=== PATIENT | female | born 1960 | race Caucasian/White ===

== ENCOUNTER 2016-08-15 15:04 | Outpatient (CLI) | payer BC ==
--- NOTE | 2016-08-15 21:29 | RAD ---
CHEST TWO VIEWS: Date: 08-15-16 FINDINGS: The heart is normal in size and the lungs are clear. No infiltrate or effusion was seen. There is no sign of pneumonia. The bony structures appear intact. IMPRESSION: No acute findings. POS: HOME
== END 2016-08-15 15:05 | disposition home or self-care (01) ==
LOC: BURRAD 15:04
PROVIDERS: ATTEND Family Medicine
DX: J40 Bronchitis, not specified as acute or chronic (principal)
CPT/HCPCS: 71020

== ENCOUNTER 2017-01-19 13:33 | Outpatient (CLI) | payer BC ==
--- NOTE | 2017-01-19 18:01 | RAD ---
LUMBAR SPINE 3 VIEWS: Date: 01/19/17 FINDINGS: No fracture is seen. There may be some slight disc space narrowing at L5-S1. Minimal anterolisthesis of L4 on L5 is present, but I could not confirm any pars defect. Arthritic changes are extremely mi nimal. The SI joints are symmetrical. There may be a calculus in the lower pole of the left kidney. IMPRESSION: 1. No acute lumbar findings. 2. Minimal L5-S1 disc space narrowing. If symptoms are suggestive of a radiculopathy, a MRI could b e helpful. 3. Mild anterolisthesis of L4 on L5. 4. Possible left renal calculus, lower pole. POS: HOME
== END 2017-01-19 13:34 | disposition home or self-care (01) ==
LOC: BURRAD 13:33
PROVIDERS: ATTEND Family Medicine
DX: M54.42 Lumbago with sciatica, left side (principal)
CPT/HCPCS: 72100